=== PATIENT | male | born 1960 | race Caucasian/White ===

== ENCOUNTER 2019-01-29 09:38 | Day surgery (SDC) | payer OTHER ==
[~2019-01-29] VITALS: Ht 188 cm; Wt 164.1 kg
[~2019-01-29 09:38] MED LIST: ASPI81CH PO; PSEU120ER PO; Protopic100 GM TP; TRIA80TC TOP; TUDORZA PRESS400 MCG IH; TUDORZA PRESS400 MCG INH; VITAMIN D-32000 UNIT PO; Ventolin Soln3 ML INH; Viagra100 MG PO; Vitamin C1000 M1 PO
--- NOTE | 2019-01-29 11:34 | NUR ---
01/29/19 [address] O2 10L VIA NON REBREATHER
== END 2019-01-29 12:19 | disposition home or self-care (01) ==
LOC: ORSCSDS 09:38
PROVIDERS: Internal Medicine Gastroenterology
PROC: 0DJD8ZZ Inspection of Lower Intestinal Tract, Via Natural or Artificial Opening Endoscopic (ICD-10-PCS; principal; 2019-01-29 11:00)
DX: Z12.11 Encounter for screening for malignant neoplasm of colon (principal); Z86.010 Personal history of colon polyps; K57.30 Diverticulosis of large intestine without perforation or abscess without bleeding; K64.8 Other hemorrhoids; E66.01 Morbid (severe) obesity due to excess calories; Z68.42 Body mass index [BMI] 45.0-49.9, adult; Z79.82 Long term (current) use of aspirin; Z79.899 Other long term (current) drug therapy
CPT/HCPCS: J2001; J2704; J7120

== ENCOUNTER 2025-01-17 13:06 | Day surgery (SDC) | payer MEDICARE, OTHER ==
[~2025-01-17] VITALS: Ht 188 cm; Wt 159.4 kg
[~2025-01-17 13:06] MED LIST changes: +DULERA 100 MCG/13 GM INH; +FURO40 PO; +Glycopyrrolate 0.2 MG/ML 1MLVIAL ONE; +LOSA50 PO; +Natrol Alpha 3300 MG PO; +Ondansetron HCl 2 MG / ML 2ML Vial ONE; +TIOT18 INH; +ePHEDrine Sulfate 50 MG/ML 1ML Injection ONE
[2025-01-17] MEDS ORDERED: MOUNJARO5 MG/0.5 M (13:42)
[2025-01-17] MEDS ORDERED: JARDIANCE10 MG (13:45)
[2025-01-17] MEDS ORDERED: POTA10T (13:46)
[2025-01-17] MEDS ORDERED: ADVAIR HFA 230-28 GM (13:48)
[2025-01-17] MEDS ORDERED: ATORVASTATIN CA20 MG (13:48)
[2025-01-17] MEDS ORDERED: Fluocinonide15 GM (13:50)
[2025-01-17] MEDS ORDERED: MOTRIN IB200 MG (13:50)
[2025-01-17] MEDS ORDERED: ALPHA LIPOIC ACID (13:52)
[2025-01-17 16:05] VITALS: BP 120/80
== END 2025-01-17 16:12 | disposition home or self-care (01) ==
LOC: ORSCSDS 13:06
PROVIDERS: Internal Medicine Gastroenterology
PROC: 0DBM8ZX Excision of Descending Colon, Via Natural or Artificial Opening Endoscopic, Diagnostic (ICD-10-PCS; principal; 2025-01-17 15:30)
PROC: 0DBK8ZX Excision of Ascending Colon, Via Natural or Artificial Opening Endoscopic, Diagnostic (ICD-10-PCS; principal; 2025-01-17 15:30)
DX: Z12.11 Encounter for screening for malignant neoplasm of colon (principal); D12.2 Benign neoplasm of ascending colon; D12.4 Benign neoplasm of descending colon; K57.30 Diverticulosis of large intestine without perforation or abscess without bleeding; Z86.0100 Personal history of colon polyps, unspecified; E11.9 Type 2 diabetes mellitus without complications; J44.9 Chronic obstructive pulmonary disease, unspecified; I25.2 Old myocardial infarction; G47.33 Obstructive sleep apnea (adult) (pediatric); I10 Essential (primary) hypertension; Z79.82 Long term (current) use of aspirin; Z79.84 Long term (current) use of oral hypoglycemic drugs; Z79.899 Other long term (current) drug therapy
CPT/HCPCS: 82947; J0461; J2003; J2405; J2704; J7120; Q9968